=== PATIENT | female | born 1960 | race Hispanic/Latino ===

== ENCOUNTER 2017-01-08 13:11 | Emergency (ER) | payer MEDICAID ==
[2017-01-08 13:12] VITALS: BMI 28.9
[2017-01-08] MEDS ORDERED: TDAP Vaccine 0.5 mL Syr IM ONE (13:31)
[2017-01-08 13:34] VITALS: BP 118/72; PULSE 62; RESP 18; TEMP 97.6; O2SAT 99
--- NOTE | 2017-01-08 13:35 | ED PDOC ---
Arrival/HPI - General Chief Complaint: Trauma Time Seen by Provider: 01/08/17 13:19 Historian: Patient, EMS - History of Present Illness Time/Duration: Prior to Arrival Symptom Onset: Sudden Symptom Course: Unchanged Quality: Aching Severity Level: Mild Associated Symptoms (Text): 01/08/17 13:32 Patient reports a mechanical trip and fall over uneven sidewalk just prior to arrival. She fell forward injuring both ankles and both knees and her left lower back. No head trauma loss of consciousness syncope dizziness or lightheadedness numbness tingling or paresthesias. No neck pain. No upper extremity injury. She is ambulatory and does not appear to be having any distress. I do not feel that any imaging is indicated at this time. Patient agrees. Past Medical History - Infectious Disease Hx of Infectious Diseases: None - Tetanus Immunization Tetanus Immunization: Unknown - Cardiac Hx Cardiac Disorders: Yes Hx Heart Murmur: Yes - Pulmonary Hx Asthma: Yes Hx Pneumonia: Yes - Neurological Hx Neurological Disorder: Yes Hx Dizziness: Yes - HEENT Hx HEENT Disorder: Yes (glasses) - Renal Hx Renal Disorder: No - Endocrine/Metabolic Hx Endocrine Disorders: No - Hematological/Oncological Hx Blood Disorders: No - Integumentary Hx Dermatological Disorder: No - Musculoskeletal/Rheumatological Hx Arthritis: Yes - Gastrointestinal Hx Gastrointestinal Disorders: No - Genitourinary/Gynecological Hx Genitourinary Disorders: No - Psychiatric Hx Anxiety: Yes Hx Bipolar Disorder: Yes Hx Depression: Yes Hx Schizophrenia: Yes Hx Substance Use: No - Surgical History Other/Comment: back surgery with pin placement and L knee replacement. - Anesthesia Hx Anesthesia: Yes Hx Anesthesia Reactions: No Hx Malignant Hyperthermia: No Family/Social History - Physician Review Nursing Documentation Reviewed: Yes Family/Social History: Unknown Family HX Smoking Status: Never Smoked Hx Alcohol Use: No Hx Substance Use: No Allergies/Home Meds Allergies/Adverse Reactions: Allergies No Known Allergies Allergy (Verified 01/08/17 13:20) Home Medications: Home Meds Medication Instructions Recorded Confirmed Albuterol HFA [Ventolin HFA 90 2 puff INH Q4 PRN 07/17/16 01/08/17 mcg/actuation (8 g)] Aspirin [Aspirin Chewable] 81 mg PO DAILY 07/17/16 01/08/17 Naproxen [Naprosyn Tab] 1 tab PO DAILY 07/17/16 01/08/17 Pantoprazole [Protonix EC Tab] 20 mg PO DAILY 07/17/16 01/08/17 clonazePAM [Klonopin] 1 tab PO DAILY 07/17/16 01/08/17 FLUoxetine [Prozac] 10 mg PO DAILY 01/08/17 01/08/17 Review of Systems - Physician Review All systems were reviewed & negative as marked: Yes Physical Exam Vital Signs Temp Pulse Resp BP Pulse Ox 01/08/17 13:26 97.6 F 62 18 118/72 99 Temperature: Afebrile Blood Pressure: Normal Pulse: Regular Respiratory Rate: Normal Appearance: Positive for: Well-Appearing, Non-Toxic, Comfortable Pain Distress: None Mental Status: Positive for: Alert and Oriented X 3 - Systems Exam Head: Present: Atraumatic, Normocephalic Neck: Present: Normal Range of Motion. No: MIDLINE TENDERNESS, Paraspinal Tenderness Back: Present: Normal Inspection. No: CVA Tenderness, Midline Tenderness, Paraspinal Tenderness Upper Extremity: Present: Normal Inspection. No: Cyanosis, Edema Lower Extremity: Present: NORMAL PULSES, Normal ROM, Neurovascularly Intact, Other (Very superficial abrasions on her bilateral anterior knees and her right ankle. No swelling. No tenderness. Full range of motion. Able to ambulate.). No : Edema, CALF TENDERNESS, Cyanosis, Rocio's Sign, Tenderness, Swelling, Erythema , Deformity Neurological: Present: GCS=15, CN II-XII Intact, Speech Normal, Motor Func Grossly Intact Medical Decision Making ED Course and Treatment: 01/08/17 13:35 Discussed with patient that I did not feel any imaging was indicated at this time. She will be treated expectantly. Follow-up in the emergency department as needed. Imaging done at that time as indicated. Discharge home. Ice and elevation. Tylenol or Advil as directed on bottle. - Medication Orders Current Medication Orders: Acetaminophen (Tylenol 325mg Tab) 975 mg PO STAT STA Stop: 01/08/17 13:32 Tetanus/Reduced Diphtheria/Acell Pertussis (Boostrix Vaccine Inj) 0.5 ml IM .ONCE ONE Stop: 01/08/17 13:32 Disposition/Present on Arrival - Present on Arrival Any Indicators Present on Arrival: No History of DVT/PE: No History of Uncontrolled Diabetes: No Urinary Catheter: No History of Decub. Ulcer: No History Surgical Site Infection Following: None - Disposition Have Diagnosis and Disposition been Completed?: Yes Diagnosis: Abrasion, Contusion, Low back pain Disposition: HOME/ ROUTINE Disposition Time: 13:36 Patient Plan: Discharge Condition: GOOD Discharge Instructions (ExitCare): Abrasion (ED), Contusion in Adults (ED) Additional Instructions: Ice and elevation. Tylenol or Advil as directed on bottle as needed. follow-up with PMD. follow-up in the ER as needed...
== END 2017-01-08 14:02 | disposition home or self-care (01) ==
LOC: ED 13:11
DX: S80.212A Abrasion, left knee, initial encounter (principal); S80.211A Abrasion, right knee, initial encounter; S90.511A Abrasion, right ankle, initial encounter; W01.0XXA Fall on same level from slipping, tripping and stumbling without subsequent striking against object, initial encounter; Y92.480 Sidewalk as the place of occurrence of the external cause; M54.5 Low back pain; Z23 Encounter for immunization